=== PATIENT | male | born 1975 | race Caucasian/White ===

== ENCOUNTER 2019-08-08 17:37 | Emergency (ER) | payer OTHER, MEDICAID ==
[~2019-08-08] VITALS: Ht 175.3 cm; Wt 113.4 kg
[2019-08-08 17:55] VITALS: BP 139/90
== END 2019-08-08 17:59 | disposition home or self-care (01) ==
LOC: M.ERS 17:37
DX: Z45.2 Encounter for adjustment and management of vascular access device (principal); Z48.01 Encounter for change or removal of surgical wound dressing